=== PATIENT | female | born 1955 | race Caucasian/White ===

== ENCOUNTER 2024-11-17 09:56 | Outpatient (CLI) | payer MEDICARE ==
--- NOTE | 2024-11-17 16:01 | RADIOLOGY REPORT ---
CLINICAL INFORMATION: 69 years old, Female; LUMBAR RADICULOPATHY. TECHNIQUE: Multisequence multiplanar MRI images of the lumbar spine were obtained without contrast. COMPARISON: None INTERPRETATION: Mild grade 1 anterolisthesis of L5 on S1. Vertebral body heights are maintained. T here is prominent marrow edema in the runs pedicle of the L5 vertebral body, likely due to stress rel ated changes/stress injury. No discrete stress fracture visualized. Visualized spinal cord and cau [place] equ[place] are within normal limits. The conus medullaris is appropriate in signal at the L1-L2 level . Mild to moderate fatty atrophy in the paraspinal musculature of the lumbosacral spine. T2 hyperint ense lesion in the liver measuring up to 1.2 cm, possible cyst, although not well evaluated on this e xam. T11-T12: T11-T12 is only evaluated on the sagittal images. There is disc desiccation with moderate to severe disc space narrowing. 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 Likely moderate bilateral neural foraminal s tenoses. T11-T12: Disc desiccation with moderate disc space narrowing. Mild diffuse disc bulge superimposed on congenital spinal canal narrowing causing mild spinal canal stenosis and partial effacement of the l ateral recesses. Facet hypertrophy with moderate bilateral neural foraminal stenoses. L1-L2: Disc desiccation with severe disc space narrowing and diffuse disc bulge superimposed on warren enital spinal canal narrowing, causing moderate spinal canal stenosis and partial effacement of the l ateral recesses. Facet hypertrophy and encroachment of the neural foramina by the disc bulge contribu pedro to moderate to severe bilateral neural foraminal stenoses. L2-L3: Disc desiccation with moderate disc space narrowing and diffuse disc bulge with superimposed left subarticular / foraminal disc extrusion, extending slightly cephalad. Moderate to severe spinal canal stenosis with crowding of the cauda equina. There is effacement of the lateral recesses bilate rally, left greater than right. Severe left neural foraminal stenosis due to facet hypertrophy and en croachment of the left neural foramen by the disc protrusion. Moderate to severe right neural forami nal stenosis secondary to facet hypertrophy. L3-L4: Disc desiccation with mild disc space narrowing and diffuse disc bulge. [id number] spin al canal stenosis. Mild partial effacement of the lateral recesses. Facet hypertrophy and encroachmen t of the neural foramina by the disc bulge contributes to severe bilateral neural foraminal stenoses. L4-L5: Disc desiccation with moderate disc space narrowing and diffuse disc bulge, mildly indenting the ventral aspect of the thecal sac. No significant spinal canal stenosis. Severe bilateral neural f oraminal stenoses secondary to facet hypertrophy and encroachment of the neural foramina by the disc bulge. [id number] bilateral facet joint effusions. L5-S1: Disc desiccation with moderate to severe disc space narrowing and diffuse disc bulge mildly i ndenting the ventral aspect of the thecal sac. No significant spinal canal stenosis. Facet hypertroph y and encroachment of the neural foramina by the disc bulge contributes to severe right and moderate to severe left neural foraminal stenoses. Lobulated T2 hyperintense structure along the posterior asp ect of the right L5-S1 facet joint, likely facet synovial cyst measuring up to 2.1 cm in greatest dim ension. IMPRESSION: 1. Degenerative disc disease and facet disease in the lumbar spine with associated spinal canal, suba rticular, and neural foraminal stenoses as detailed above. 2. Marrow edema at the right L5 pedicle, possible stress related changes/stress injury. No discrete stress fracture visualized. 3. Mild grade 1 anterolisthesis of L4 on L5. 4. Facet synovial cyst ule in the posterior aspect of the right L5-S1 facet joint. 5. Additional findings as detailed above.
== END 2024-11-17 23:59 | disposition home or self-care (01) ==
LOC: MRI 09:56
PROVIDERS: ATTEND Family Medicine
DX: M51.17 Intervertebral disc disorders with radiculopathy, lumbosacral region (principal); M43.16 Spondylolisthesis, lumbar region; M48.07 Spinal stenosis, lumbosacral region; M47.26 Other spondylosis with radiculopathy, lumbar region; M71.38 Other bursal cyst, other site
CPT/HCPCS: 72148